=== PATIENT | female | born 1990 | race Two or more races ===

== ENCOUNTER 2020-12-13 00:47 | Emergency (ER) | payer BC ==
[~2020-12-13] VITALS: Ht 162.6 cm; Wt 87.0 kg
[2020-12-13 04:01] VITALS: BP 122/66
[2020-12-13] MEDS ORDERED: DIPHENHYDRAMINE 25 MG CAPSULE ONE (04:22)
[2020-12-13] MEDS ORDERED: DIPHENHYDRAMINE 25 MG CAPSULE PO ONE (04:30)
== END 2020-12-13 05:00 | disposition home or self-care (01) ==
LOC: ED 01:15
DX: L03.115 Cellulitis of right lower limb (principal)
CPT/HCPCS: 93971; 99284; Q0163